=== PATIENT | female | born 1975 | race Caucasian/White ===

== ENCOUNTER → 2019-05-30 | Outpatient (CLI) | payer BC ==
[2019-05-30 17:11] LABS: BASO % 1 % (0-3); EOS # 0.2 x10^3/uL (0.0-0.7); EOS % 3 % (0-3); HEMATOCRIT 37.6 % (36.0-47.0); HEMOGLOBIN 12.8 g/dL (12.0-15.5); LYMPH # 1.8 x10^3/uL (1.0-4.8); LYMPH % 30 % (24-48); MEAN CORPUSCULAR HEMOGLOBIN 29 pg (25-35); MEAN CORPUSCULAR HGB CONC 34 g/dL (31-37); MEAN CORPUSCULAR VOLUME 86 fL (79-100); MONO # 0.4 x10^3/uL (0.0-1.1); MONO % 6 % (0-9); NEUT # 3.6 x10^3/uL (1.8-7.7); NEUT % 60 % (31-73); PLATELET COUNT 276 x10^3/uL (140-400); RED BLOOD COUNT 4.37 x10^6/uL (3.50-5.40); RED CELL DISTRIBUTION WIDTH 13.6 % (11.5-14.5); WHITE BLOOD COUNT 5.9 x10^3/uL (4.0-11.0)
[2019-05-30 17:36] LABS: FREE T4 0.74 ng/dL (0.76-1.46); THYROID STIM HORMONE (TSH) 2.229 uIU/mL (0.358-3.74)
[2019-05-30 18:43] LABS: CHOLESTEROL/HDL RATIO 3.4
[2019-05-31 03:08] LABS: FSH 6.8 mIU/mL (.); PROGESTERONE 0.6 ng/mL (.); TESTOSTERONE TOTAL 19 ng/dL (8-48)
== END | disposition home or self-care (01) ==
LOC: LAB 16:33
PROVIDERS: ATTEND Obstetrics & Gynecology
DX: N93.8 Other specified abnormal uterine and vaginal bleeding (principal)
CPT/HCPCS: 36415; 80061; 82626; 82627; 82670; 83001; 84144; 84146; 84403; 84439; 84443; 85025

== ENCOUNTER → 2019-07-10 | Outpatient (CLI) | payer BC ==
[~2019-07-10] MED LIST: CETI10TA16 PO; CITA40TA5 PO; GABA300C18 PO; IBUP-1027 PO; MULT-245 PO
[2019-07-10 15:01] LABS: BASO % 0 % (0-3); EOS # 0.2 x10^3/uL (0.0-0.7); EOS % 2 % (0-3); HEMATOCRIT 35.9 % (36.0-47.0); HEMOGLOBIN 12.2 g/dL (12.0-15.5); LYMPH # 1.7 x10^3/uL (1.0-4.8); LYMPH % 22 % (24-48); MEAN CORPUSCULAR HEMOGLOBIN 30 pg (25-35); MEAN CORPUSCULAR HGB CONC 34 g/dL (31-37); MEAN CORPUSCULAR VOLUME 87 fL (79-100); MONO # 0.6 x10^3/uL (0.0-1.1); MONO % 7 % (0-9); NEUT # 5.3 x10^3/uL (1.8-7.7); NEUT % 68 % (31-73); PLATELET COUNT 239 x10^3/uL (140-400); RED BLOOD COUNT 4.15 x10^6/uL (3.50-5.40); RED CELL DISTRIBUTION WIDTH 13.9 % (11.5-14.5); WHITE BLOOD COUNT 7.8 x10^3/uL (4.0-11.0)
--- NOTE | 2019-07-10 15:06 | EKG ---
[facility] [address] [place] [address] Test Date: 2019-07-10 Test Time: 15:05:07 Pat Name: LINNETTE DANGELO Department: Room: Gender: F Halftone Operator: : 1975 Requested By: ANANTH HINES Order Number: [id number] Reading MD: Rahul Lovelace MD Measurements Intervals [place] Rate: 64 P: 42 RI: 134 QRS: 14 QRSD: 82 T: 39 QT: 380 QTc: 392 Interpretive Statements SINUS RHYTHM Electronically Signed On 07-11-2019 9:17:20 FABRICATING MACHINE OPERATOR by Rahul Lovelace MD
== END | disposition home or self-care (01) ==
LOC: SURGPAT 14:16
PROVIDERS: ATTEND Obstetrics & Gynecology
DX: Z01.818 Encounter for other preprocedural examination (principal)
CPT/HCPCS: 36415; 85025; 93005

== ENCOUNTER 2019-07-13 07:31 | Observation (INO) | payer BC ==
[2019-07-13] VITALS (12 sets, daily range): BP systolic 99–119; BP diastolic 45–67
[~2019-07-13] VITALS: Ht 162.6 cm; Wt 99.8 kg
[~2019-07-13 07:31] MED LIST changes: -GABA300C18 PO; +HYDROmorphone 2 MG/ML VIAL IV PRN; -IBUP-1027 PO; +IV RINGERS,LACTATED 1000ML 1,000 ML IV SCH; +LIDOCAINE 1% PF 2 ML VIAL. ID PRN; +MORPHINE SULFATE 2 MG/ML VIAL. IV PRN; +PROCHLORPERAZINE 10 MG/2 ML VIAL. IV PRN; +fentaNYL PF VIAL 100 MCG/2 ML VIAL IV PRN
[2019-07-13] MEDS ORDERED: INDIGOTINDISULFONATE SODIUM 40 MG/5 ML AMPUL. ONE (09:33)
[2019-07-13] MEDS ORDERED: LIDOCAINE 1%/EPI 1:100,000 20 ML VIAL. ONE (09:34)
[2019-07-13] MEDS ORDERED: DEXAMETHASONE SOD PHOS 4 MG/ML VIAL ONE ×2 (09:34)
[2019-07-13] MEDS ORDERED: LIDOCAINE 2% PF 5 ML VIAL. ONE (09:35)
[2019-07-13] MEDS ORDERED: ONDANSETRON PF 4 MG/2 ML VIAL. ONE (09:35)
[2019-07-13] MEDS ORDERED: KETOROLAC 30 MG/ML VIAL. ONE (09:35)
[2019-07-13] MEDS ORDERED: PROPOFOL 20 ML IV ONE (09:35)
[2019-07-13] MEDS ORDERED: FAMOTIDINE 20 MG/2 ML VIAL ONE (09:35)
[2019-07-13] MEDS ORDERED: ROCURONIUM 50 MG/5 ML VIAL. ONE (09:37)
[2019-07-13] MEDS ORDERED: fentaNYL PF VIAL 100 MCG/2 ML VIAL ONE (09:37)
[2019-07-13] MEDS ORDERED: MIDAZOLAM HCL/PF 2 MG/2 ML VIAL. ONE (09:37)
[2019-07-13] MEDS ORDERED: ceFAZolin 2GM PREMIX 2 GM/50 ML BAG IV ONE (10:00)
[2019-07-13] MEDS ORDERED: GLYCOPYRROLATE 1 MG/5 ML VIAL. ONE (10:39)
[2019-07-13] MEDS ORDERED: NEOSTIGMINE METHYLSULFATE 5 MG/5 ML SYRINGE. ONE (10:39)
[2019-07-13] MEDS ORDERED: SEVOFLURANE 31 TO 60 MINUTES. IH ONE (10:50)
--- NOTE | 2019-07-13 10:56 | PDOC ---
BRIEF OPERATIVE NOTE Date: Jul 13, 2019 Pre-Op Diagnosis 1. Menorrhagia 2. Dysmenorrhea Post-Op Diagnosis SAme Procedure Performed [facility] Surgeon Dr. Bonilla Finance Analyst Hvac R Tech: Wolf Anesthesia Type: General Blood Loss 25 ml Specimens Obtained uterus and karie. fallopian tubes Findings enlarged uterus, nml fallopian tubes and ovaries karie. Complications none Operative Note see dictation ANANTH BONILLA Jr, MD Jul 13, 2019 10:56
[2019-07-13] MEDS ORDERED: diphenhydrAMINE 50 MG/ML VIAL IV PRN (11:00)
[2019-07-13] MEDS ORDERED: diphenhydrAMINE HCL 25 MG CAPSULE PO PRN (11:00)
[2019-07-13] MEDS ORDERED: ONDANSETRON PF 4 MG/2 ML VIAL. IV PRN (11:00)
[2019-07-13] MEDS ORDERED: KETOROLAC 30 MG/ML VIAL. IV PRN (11:00)
[2019-07-13] MEDS ORDERED: CALCIUM CARBONATE 500 MG TAB.CHEW PO PRN (11:00)
[2019-07-13] MEDS ORDERED: 0.9 % SODIUM CHLORIDE 10 ML DISP.SYRIN. IV PRN (11:00)
[2019-07-13] MEDS ORDERED: SIMETHICONE 80 MG TAB.CHEW PO PRN (11:00)
[2019-07-13] MEDS ORDERED: DEXTROSE 50% 25 GM / 50ML DISP.SYRIN. IV PRN (11:00)
[2019-07-13] MEDS ORDERED: oxyCODONE/APAP 5/325 1 TAB TABLET PO PRN (11:00)
[2019-07-13] MEDS ORDERED: ZOLPIDEM 5 MG TABLET. PO PRN (11:00)
[2019-07-13] MEDS ORDERED: PROCHLORPERAZINE 10 MG/2 ML VIAL. IV PRN (11:00)
--- NOTE | 2019-07-13 11:04 | OP ---
DATE OF SURGERY: PREOPERATIVE DIAGNOSES: 1. Menorrhagia. 2. Dysmenorrhea. POSTOPERATIVE DIAGNOSES: 1. Menorrhagia. 2. Dysmenorrhea. PROCEDURE: Transvaginal hysterectomy. SURGEON: Ananth Bonilla MD OPHTHALMOLOGIST RETINA SPECIALIST: Wolf. ANESTHESIA: GETA. ESTIMATED BLOOD LOSS: 25 mL. COMPLICATIONS: None. FINDINGS: Enlarged uterus, normal fallopian tubes and ovaries bilaterally. SUMMARY: A 43-year-old female with menorrhagia and dysmenorrhea, unresponsive to medical treatment, requiring hysterectomy. The patient was counseled on the risks, benefits and expectations and voiced clear understanding to proceed. DESCRIPTION OF PROCEDURE: The patient was taken to surgery suite and placed in dorsal lithotomy position. She was prepped with Betadine solution and draped in sterile fashion. After adequate anesthesia, weighted speculum and curved Petra placed vaginally. The anterior and posterior lip of the cervix grasped with Panfilo clamps. A 1% lidocaine with epinephrine was injected circumferentially. Bovie cautery was utilized to circumscribe the cervix. The vaginal mucosa was dissected away from the lower uterine segment using blunt dissection with a moist Ray-Blue. The parametrial tissue was clamped bilaterally with curved Carter clamps, cut, suture ligated with 2-0 Vicryl suture. The posterior cul-de-sac and anterior cul-de-sac were both entered bluntly and dissected with blunt dissection. Long weighted speculum was placed. The uterosacral ligaments and cardinal ligaments were clamped bilaterally, cut, and suture ligated. The uteroovarian pedicles were clamped bilaterally, cut, and suture ligated. The uterus and cervix were then removed in their entirety. The left fallopian tube was grasped with a [place] and clamped with curved Carter clamp, cut, and suture ligated. Same process took place with the right fallopian tube. The pedicles were all hemostatic. A modified Cruz's culdoplasty was performed incorporating the uterosacral ligaments bilaterally. The remainder of the vaginal cuff was reapproximated using 2-0 Vicryl suture in [id number] manner. Moist vaginal packing was placed. The patient tolerated the procedure well and was taken to recovery room in stable condition. Sponge and needle count correct x 3. ANANTH BONILLA MD DR: MARIE/antonio JOB#: [id number] / [id number]
[2019-07-13] MEDS: fentaNYL PF VIAL 100 MCG/2 ML VIAL IV PRN ×2 (11:17→11:38)
--- NOTE | 2019-07-13 11:50 | NUR ---
Pt to room 339 per bed from PACU S/P [facility] this am. Pt awake and eating ice chips and pudding. Pt denies pain at this time. No bleeding noted on OB pad. Assessment completed and frequent VS started. Call light given to pt, family at bedside.
[2019-07-13] MEDS: GABAPENTIN 300 MG CAPSULE. PO SCH ×2 (13:48→23:02)
[2019-07-13] MEDS ORDERED: OPIUM/BELLADONNA 30/16.2MG SUPP.RECT. PR PRN (17:45)
[2019-07-13] MEDS: IBUPROFEN 400 MG TABLET. PO PRN (19:17)
[2019-07-13] MEDS ORDERED: ACETAMINOPHEN 325 MG TABLET. PO PRN (21:30)
[2019-07-13] MEDS ORDERED: ACETAMINOPHEN 500 MG TABLET PO PRN (21:30)
[2019-07-14 05:05] VITALS: BP 121/61
[2019-07-14] MEDS: IBUPROFEN 400 MG TABLET. PO PRN (05:07)
[2019-07-14 05:16] LABS: BASO % 0 % (0-3); EOS % 0 % (0-3); HEMATOCRIT 35.8 % (36.0-47.0); HEMOGLOBIN 12.1 g/dL (12.0-15.5); LYMPH # 1.4 x10^3/uL (1.0-4.8); LYMPH % 15 % (24-48); MEAN CORPUSCULAR HEMOGLOBIN 29 pg (25-35); MEAN CORPUSCULAR HGB CONC 34 g/dL (31-37); MEAN CORPUSCULAR VOLUME 87 fL (79-100); MONO # 0.7 x10^3/uL (0.0-1.1); MONO % 7 % (0-9); NEUT # 7.3 x10^3/uL (1.8-7.7); NEUT % 78 % (31-73); PLATELET COUNT 228 x10^3/uL (140-400); RED BLOOD COUNT 4.11 x10^6/uL (3.50-5.40); RED CELL DISTRIBUTION WIDTH 13.4 % (11.5-14.5); WHITE BLOOD COUNT 9.3 x10^3/uL (4.0-11.0)
[2019-07-14] MEDS: GABAPENTIN 300 MG CAPSULE. PO SCH (05:59)
[2019-07-14] MEDS ORDERED: DOCUSATE SODIUM 100 MG CAPSULE. PO PRN (06:00)
--- NOTE | 2019-07-14 08:14 | PDOC ---
SURGICAL PROGRESS NOTE Subjective Pt. feeling well. Pain controlled. She is ambulating, voiding and tolerating regular diet. Vital Signs Vital Signs Date Time Temp Pulse Resp B/P (MAP) Pulse Ox O2 Delivery O2 Flow Rate FiO2 07/14/19 05:05 98.2 74 18 121/61 (81) 96 Room Air 98.2 07/13/19 11:00 10 I&O Intake and Output 07/14/19 07:00 Intake Total 4647 ml Output Total 2550 ml Balance 2097 ml Intake Oral 1850 ml IV Total 2100 ml Other 697 ml Output Urine Total 2525 ml Estimated Blood Loss 25 ml General: Alert HEENT: Atraumatic Lungs: Clear to auscultation Heart: Regular rate Abdomen: Normal bowel sounds, Soft Skin: No rashes Psych/Mental Status: Mental status NL Labs Laboratory Tests Test 07/14/19 05:00 White Blood Count 9.3 x10^3/uL (4.0-11.0) Red Blood Count 4.11 x10^6/uL (3.50-5.40) Hemoglobin 12.1 g/dL (12.0-15.5) Hematocrit 35.8 % (36.0-47.0) Mean Corpuscular Volume 87 fL (79-100) Mean Corpuscular Hemoglobin 29 pg (25-35) Mean Corpuscular Hemoglobin Concent 34 g/dL (31-37) Red Cell Distribution Width 13.4 % (11.5-14.5) Platelet Count 228 x10^3/uL (140-400) Neutrophils (%) (Auto) 78 % (31-73) Lymphocytes (%) (Auto) 15 % (24-48) Monocytes (%) (Auto) 7 % (0-9) Eosinophils (%) (Auto) 0 % (0-3) Basophils (%) (Auto) 0 % (0-3) Neutrophils # (Auto) 7.3 x10^3/uL (1.8-7.7) Lymphocytes # (Auto) 1.4 x10^3/uL (1.0-4.8) Monocytes # (Auto) 0.7 x10^3/uL (0.0-1.1) Eosinophils # (Auto) 0.0 x10^3/uL (0.0-0.7) Basophils # (Auto) 0.0 x10^3/uL (0.0-0.2) Laboratory Tests Test 07/14/19 05:00 White Blood Count 9.3 x10^3/uL (4.0-11.0) Red Blood Count 4.11 x10^6/uL (3.50-5.40) Hemoglobin 12.1 g/dL (12.0-15.5) Hematocrit 35.8 % (36.0-47.0) Mean Corpuscular Volume 87 fL (79-100) Mean Corpuscular Hemoglobin 29 pg (25-35) Mean Corpuscular Hemoglobin Concent 34 g/dL (31-37) Red Cell Distribution Width 13.4 % (11.5-14.5) Platelet Count 228 x10^3/uL (140-400) Neutrophils (%) (Auto) 78 % (31-73) Lymphocytes (%) (Auto) 15 % (24-48) Monocytes (%) (Auto) 7 % (0-9) Eosinophils (%) (Auto) 0 % (0-3) Basophils (%) (Auto) 0 % (0-3) Neutrophils # (Auto) 7.3 x10^3/uL (1.8-7.7) Lymphocytes # (Auto) 1.4 x10^3/uL (1.0-4.8) Monocytes # (Auto) 0.7 x10^3/uL (0.0-1.1) Eosinophils # (Auto) 0.0 x10^3/uL (0.0-0.7) Basophils # (Auto) 0.0 x10^3/uL (0.0-0.2) Assessment/Plan A: POD#1 s/p [facility] P: D/c home. ANANTH HINES Jr, MD Jul 14, 2019 08:14
[2019-07-14] MEDS ORDERED: GABA300C18 PO (08:16)
[2019-07-14] MEDS ORDERED: IBUP-1027 PO (08:16)
--- NOTE | 2019-07-14 08:16 | DISCH ---
DISCHARGE INSTRUCTIONS Condition on Discharge Condition on Discharge: Stable Activity After Discharge Activity Instructions for Disc: Activity as tolerated Lifting Instructions after Dis: No heavy lifting Driving Instructions after Dis: No driving for 2 weeks Diet after Discharge Diet after Discharge: Regular Contacting the [facility] after DC Call your doctor for: Concerns you may have Follow-Up Follow up with: Dr. Bonilla in 2 wks ANANTH BONILLA Jr, MD Jul 14, 2019 08:16
[2019-07-14 09:39] VITALS: BP 125/79
--- NOTE | 2019-07-14 09:40 | NUR ---
Discharge Discharge instructions given to patient at this time, no questions or concerns noted. To follow up with DR Bonilla in 2 weeks, to keep scheduled appointment. Patient ambulated off unit with all her belongings and husban at he side.
--- NOTE | 2019-07-17 16:06 | PATHOLOGY ---
[facility] Accession Number: [id number] . 01 Material submitted: . PART A: uterus - UTERUS,CERVIX PART B: fallopian tube - LEFT FALLOPIAN TUBE. Modifiers: left PART C: fallopian tube - RIGHT FALLOPIAN TUBE. Modifiers: right . 01 Clinical history: . Menorrhagia, dysmenorrhea . 02 Diagnosis: A. Uterus, hysterectomy: - Mild chronic cervicitis with focal squamous metaplasia. - Endocervical polyp. - Early secretory endometrium. - Mild myometrial hypertrophy (weight 117 grams). . B. Left salpingectomy: - Segment of fallopian tube confirmed. . C. Right salpingectomy: - Segment of fallopian tube confirmed. . (JPM:jeremy; 07/17/2019) S 07/17/2019 0914 Local . 02 Comment: There is no atypia or evidence of malignancy. . 02 Electronically signed: . Isidoro Ho MD, Pathologist NPI- [id number] . 01 Gross description: . A. The specimen is received in formalin labeled " Armani Dunbar , uterus, cervix ". Received is a 117 g, 7.7 x 5.6 x 5.1 cm uterus with attached cervix. The uterine serosa is light hennessy and smooth in appearance with a single serosal nodule on the posterior aspect measuring 0.3 cm. The 1.0 cm cervical os is surrounded by pale hennessy and smooth to slightly irregular in contour ectocervical mucosa. The uterus is oriented using the peritoneal reflection and the anterior paracervical margin is inked black. The uterus is opened laterally to reveal a pale hennessy, slightly corrugated endocervical canal measuring 2.1 cm in length. In the anterior aspect of the endocervical canal, there is a possible light hennessy polyp measuring 0.7 cm in maximum dimensions. The endometrial cavity is triangular measuring 4.3 cm in length by 2.8 cm in width. The endometrium is pale hennessy, glistening in appearance and measures up to 0.4 cm in thickness. Serial sectioning reveals a hennessy-pink, trabeculated myometrium measuring up to 2.3 cm in thickness with no grossly distinct nodules or lesions. The specimen is submitted representatively as follows: . A1 12:00 cervix with possible polyp A2 6:00 cervix A3 serosal nodule A4 anterior endomyometrium A5 posterior endomyometrium. . B. The specimen is received in formalin, labeled "Armani Coia, left fallopian tube". Received is a fimbriated fallopian tube measuring 2.7 cm in length by 0.6 cm in diameter. The serosal surface is jones-hennessy and smooth in appearance. Sectioning reveals a patent lumen. The specimen is submitted representatively in cassette B1. . C. The specimen is received in formalin, labeled "Armani Coia, right fallopian tube". Received is a fimbriated fallopian tube measuring 3.2 cm in length by 0.6 cm in diameter. The serosal surface is pink-jones and smooth in appearance. Sectioning reveals a patent lumen. The specimen is submitted representatively in cassette C1. (CAA; 07/14/2019) QAC/QAC 07/17/2019 0912 Local . 02 Pathologist provided ICD-10: N72, N84.1, N85.8 . 02 CPT . 345900 Specimen Comment: A courtesy copy of this report has been sent to [phone] Specimen Comment: Report sent to [facility]formed at: [facility] [address] [facility] [address], [place] [id number] MD Wyatt López MD Phone: [phone] [facility]formed [facility]: [facility] [address] [place], [place] [id number] MD Isidoro Ho MD Phone: [phone]
== END 2019-07-14 10:26 | disposition home or self-care (01) ==
LOC: SURG 07:31 → 3 NORTH 11:35
PROVIDERS: ADMIT Obstetrics & Gynecology; ATTEND Obstetrics & Gynecology
DX: N92.0 Excessive and frequent menstruation with regular cycle (principal); N94.6 Dysmenorrhea, unspecified
CPT/HCPCS: 36415; 58260; 85025; 86850; 86900; 86901; A7015; G0378; G0379; J1100; J1885; J2001; J2250; J2405; J2704; J2710; J3010; J3490; J7120; J0696